=== PATIENT | male | born 1975 | race Two or more races ===

== ENCOUNTER 2024-09-06 10:44 | Inpatient (IN) | payer OTHER ==
[~2024-09-06] VITALS: Ht 177.8 cm; Wt 109.4 kg
--- NOTE | 2024-09-06 11:14 | ED.PDOC ---
GI ASSESSMENT HPI Comments 49-year-old male who comes in with chief complaint of right-sided abdominal pain that radiated down to his right lower quadrant. The patient states that the pain started in the epigastric area yesterday and then went down to the right lower quadrant. He did have a fever yesterday and he states that the pain is a 10/10. He is having some difficulty ambulating secondary to the pain. There has been no nausea, vomiting or diarrhea. The patient denies any history of this in the past. Chief Complaint: Abdominal Pain Time Seen by MD: 10:54 Reviewed Notes: Nurses Notes, Medications, Allergies (No allergies to medications) Allergies: Coded Allergies: NO KNOWN ALLERGIES (Unverified , 09/06/24) Information Source: Patient Mode of Arrival: Ambulatory Timing: Days Duration: Since onset Prehospital treatment: None Quality: Sharp Vomitus: None Stool: Tender Severity: Moderate Recent: None Recent Hx of: None Pain Location: RLQ Modifying Factors: Nothing Associated sign and symptoms: Abdominal Pain Past Medical History PAST MEDICAL HISTORY: Denies Surgical History: Denies all surgeries Family History Family History: Family hx of DM Social History Smoker: Cigarettes Alcohol: Occasionally Drugs: Denies Drug Use Lives In: Home Constitutional: denies: chills, diaphoresis, fatigue, fever, malaise, sweats, weakness, others EENTM: denies: blurred vision, double vision, ear bleeding, ear discharge, ear drainage, ear pain, ear ringing, eye pain, eye redness, hearing loss, mouth pain, mouth swelling, nasal discharge, nose bleeding, nose congestion, nose pain, photophobia, tearing, throat pain, throat swelling, voice changes, others Respiratory: denies: cough, hemoptysis, orthopnea, SOB at rest, shortness of breath, SOB with excertion, stridor, wheezing, others Cardiovascular: denies: chest pain, dizzy spells, diaphoresis, Dyspnea on exertion, edema, irregular heart beat, left arm pain, lightheadedness, palpitations, PND, syncope, others Gastrointestinal: reports: abdominal pain; denies: abdomen distended, blood streaked bowels, constipated, diarrhea, dysphagia, difficulty swallowing, hematemesis, melena, nausea, poor appetite, poor fluid intake, rectal bleeding, rectal pain, vomiting, others Genitourinary: denies: burning, dysuria, flank pain, frequency, hematuria, i ncontinence, penile discharge, penile sore, pain, testicle pain, testicle swelling, urgency, others Neurological: denies: dizziness, fainting, headache, left sided numbness, left sided weakness, numbness, paresthesia, pre-existing deficit, right sided numbness, right sided weakness, seizure, speech problems, tingling, tremors, weakness, others Musculoskeletal: denies: back pain, gout, joint pain, joint swelling, muscle pain, muscle stiffness, neck pain, others Integumetry: denies: bruises, change in color, change in hair/nails, dryness, laceration, lesions, lumps, rash, wounds, others Allergic/Immunocompromised: denies: Difficulty Healing, Frequent Infections, Hives, Itching, others Hematologic/Lymphatic: denies: anemia, blood clots, easy bleeding, easy bruising, swollen glands, others Endocrine: denies: excessive hunger, excessive sweating, excessive thirst, excessive urination, flushing, intolerance to cold, intolerance to heat, unexplained weight gain, unexplained weight loss, others Psychiatric: denies: anxiety, bipolar disorder, depression, hopeless, panic disorder, schizophrenia, sleepless, suicidal, others Physical Exam General Appearance: Moderate Distress HEENT: Normal ENT Inspection, Pharynx Normal, TMs Normal Neck: Full Range of Motion, Non-Tender, Normal, Normal Inspection Respiratory: Chest Non-Tender, Lungs Clear, No Accessory Muscle Use, No Respiratory Distress, Normal Breath Sounds Cardiovascular: No Edema, No JVD, No Murmur, No Gallop, Normal Peripheral Pulses, Regular Rate/Rhythm Breast Exam: Deferred Gastrointestinal: No Organomegaly, No Pulsatile Mass, Normal Bowel Sounds, RLQ, Soft, Tenderness Genitalia: Deferred Pelvic: Deferred Rectal: Deferred Extremities: No calf tenderness, Normal capillary refill, Normal inspection, Normal range of motion, Non-tender, No pedal edema Musculoskeletal : Apperance: Normal Neurologic: Alert, master of ceremonies II-XII nml as Tested, No Motor Deficits, Normal Affect, Normal Mood, No Sensory Deficits Cerebellar Function: Normal Reflexes: Normal Skin: Dry, Normal Color, Warm Lymphatic: No Adenopathy Was a procedure done? Was a procedure done?: No GI differential Dx Differential Diagnosis: Appendicitis, Gastritis/PUD, Gastroenteritis, Inflammatory BD, Pancreatitis, UTI, Electrolyte Imbalance X-Ray, Labs, Meds, VS Vital Signs Date Time Temp Pulse Resp B/P (MAP) Pulse Ox O2 Delivery O2 Flow Rate FiO2 09/06/24 11:45 Room Air* 0 21 09/06/24 11:40 128 20 125/82 09/06/24 11:29 98.3 128 20 125/82 (96) 96 98.3 09/06/24 11:07 97.8 129 18 111/87 (95) 96 Lab Test 09/06/24 11:16 09/06/24 11:00 Range/Units White Blood Count 21.9 H 4.4-10.8 10^3/uL Red Blood Count 5.57 4.5-5.90 10^6/uL Hemoglobin 17.6 H 13.5-17.5 g/dL Hematocrit 52.4 41.0-53.0 % Mean Corpuscular Volume 94.0 80.0-100.0 fL Mean Corpuscular Hemoglobin 31.7 28.0-32.0 pg Mean Corpuscular Hemoglobin Concent 33.7 32.0-36.0 g/dL Red Cell Distribution Width 13.5 11.8-14.3 % Platelet Count 365 140-450 10^3/uL Mean Platelet Volume 7.6 6.9-10.8 fL Neutrophils (%) (Auto) 78.8 37.0-80.0 % Lymphocytes (%) (Auto) 12.4 10.0-50.0 % Monocytes (%) (Auto) 7.6 0.0-12.0 % Eosinophils (%) (Auto) 0.4 0.0-7.0 % Basophils (%) (Auto) 0.8 0.0-2.0 % Neutrophils # (Auto) 17.3 H 1.6-8.6 10 ^3/uL Lymphocytes # (Auto) 2.7 0.4-5.4 10 ^3/uL Monocytes # (Auto) 1.7 H 0-1.3 10 ^3/uL Eosinophils # (Auto) 0.1 0-0.8 10 ^3/uL Basophils # (Auto) 0.2 0-0.2 10 ^3/uL Nucleated Red Blood Cells 0.0 % Prothrombin Time Pending Prothrombin Time INR Pending Activated Partial Thromboplast Time Pending Sodium Level 135 L 136-145 mmol/L Potassium Level 3.9 3.5-5.1 mmol/L Chloride Level 101 98-107 mmol/L Carbon Dioxide Level 27 20-31 mmol/L Anion Gap 7 5-15 Blood Urea Nitrogen 10 9-23 mg/dL Creatinine 1.29 0.700-1.30 mg/dL Glomerular Filtration Rate Calc 68 >90 mL/min BUN/Creatinine Ratio 7.8 L 10.0-20.0 Serum Glucose 133 H 74-106 mg/dL Calcium Level 10.5 H 8.7-10.4 mg/dL Urine Color Yellow Yellow Urine Clarity Clear Clear Urine pH 6.0 5.0-9.0 Urine Specific [place] 1.030 1.001-1.035 Urine Protein 1+ H Negative Urine Ketones Negative Negative Urine Blood Negative Negative /uL Urine Nitrite Negative Negative Urine Bilirubin Negative Negative Urine Urobilinogen Normal Negative mg/dL Urine Leukocyte Esterase Negative Negative /uL Urine RBC 2 0 - 3 /hpf Urine WBC 3 0 - 3 /hpf Urine Squamous Epithelial Cells None seen <5 /hpf Urine Bacteria None seen None Seen /hpf Urine Hyaline Casts Few 0 - 2 /lpf Urine Mucus Moderate None Seen Urine Glucose Normal Normal mg/dL Current Medications Medications (Trade) Dose Ordered Sig/Justin Route Start Time Stop Time Status Last Admin Ondansetron HCl (Zofran) 4 mg ONCE ONCE IV 09/06/24 11:15 09/06/24 11:16 DC 09/06/24 11:40 Sodium Chloride 1,000 ml @ 1,000 mls/hr Q1H ONCE IVB 09/06/24 11:15 09/06/24 12:14 09/06/24 11:39 Morphine Sulfate 4 mg ONCE ONCE IV 09/06/24 11:15 09/06/24 11:16 DC 09/06/24 11:40 [place] [address] Ph: [phone] DIAGNOSTIC IMAGING Diagnostic Imaging Report : [id number] Signed PATIENT: JOE LEE ACCT: [id number] UNIT: [id number] : 1975 LOC: ER ROOM / BED: / AGE / SEX: 49 / M ADM STATUS: REG ER SERVICE 1105 ORDERING PHYSICIAN: JATIN NOBLES MD PROCEDURE(s): ABPL - CT AB PEL WO CON-NO ORAL OR IV REASON: rlq ORDER NUMBER(s): [id number], ACCESSION NUMBER(s): [id number] Indication: rlq Technique: CT axial images of the abdomen and pelvis are obtained without contrast. Coronal and sagittal reformats were obtained. Radiation Dose Information: CTDI volume is 18.94 mGy. Dose-length product is 1138.48 mGy*cm Comparison: None FINDINGS: There is limited interpretation of the abdomen and pelvis without administration of intravenous contrast. Lung bases demonstrate right lower lobe atelectasis. Adrenal glands, spleen and pancreas unremarkable in shape. 2.5 cm duodenal diverticulum. Hepatic steatosis. No CT evidence for cholelithiasis. Gallbladder sludge. Kidneys demonstrate no hydronephrosis. Stomach is partially distended. Small bowel loops are normal in caliber. Colonic diverticula. Moderate volume stool within the colon. The appendix is inflamed and measures 13 mm in diameter. There is extensive periappendiceal stranding and edema. There is obstructing appendicolith measuring 10 mm. Abdominal aortic atherosclerotic disease. Bladder partially distended. No free pelvic fluid. No inguinal lymphadenopathy. There is no aggressive osseous process. [place] Dr. Chacko radiology times IMPRESSION: 1. Acute appendicitis with concern for perforation. Obstructing appendicolith measuring 10 mm[address] Findings communicated to Dr[address] Nobles at 11:53 a.m. on 09/06/2024 2. Hepatic steatosis. 3. Other findings as described. ATED BY: EUGENIO GOINS MD DICTATED DATE/TIME: 09/06/24 1155 SIGNED BY: EUGENIO GOINS MD SIGNED DATE/TIME: 09/06/24 1155 CC: IV Hep-Lock was established The patient was given 1 L bolus of normal saline Based on the findings, the patient was being started on Zosyn IV piggyback The patient was given morphine for the pain and Zofran for the nausea We contacted the surgeon on-call and he is aware of the patient's condition. We did discuss the patient's findings with the patient. At this time, the patient will be admitted with a diagnosis of acute appendicitis which is most likely ruptured. Images Reviewed?: Images reviewed and evaluated by me Time of 1ST Reevaluation: 11:13 Reevaluation 1ST: Unchanged Patient Education/Counseling: Diagnosis, Treatment, Prognosis Family Education/Counseling: No Family Present Departure 1 Departure Time of Disposition: 12:05 Impression: Primary Impression: Intractable abdominal pain Additional Impression: Ruptured appendicitis Disposition: ADMITTED INPATIENT Admit to: Tele Condition: Fair Critical Care Note Critical Care Time?: No Stability Stability form required: Yes Unstable for transfer: Telemetry monitoring (Telemetry monitoring required), ED Physician Assesment (Clinical assesment) Heart Score Heart Score: Heart Score Response (Comments) Value History N/A 0 EKG N/A 0 Age N/A 0 Risk Factors N/A 0 Troponin N/A 0 Total 0 I personally scribed for JATIN NOBLES MD ([email or web address]) on 09/06/24 at 12:04. Electronically submitted by Olga MOTT). JATIN NOBLES MD Sep 06, 2024 11:14
[2024-09-06 11:22] LABS: Urine Bacteria None Seen /hpf (None Seen)
[2024-09-06] MEDS: SODIUM CHLORIDE 0.9% 1,000 ML IVB ONE (11:39)
[2024-09-06] MEDS: MORPHINE SULFATE 4 MG/ML SYR/VIAL IV ONE (11:40)
[2024-09-06] MEDS: ONDANSETRON HCL 4 MG/2 ML VIAL IV ONE (11:40)
[2024-09-06 11:43] LABS: Urine Blood Negative /uL (Negative); Urine Clarity Clear (Clear); Urine Color Yellow (Yellow); Urine Hyaline Cast FEW /lpf (0 - 2); Urine Mucus MODERATE (None Seen); Urine Protein, UAD 1+ (Negative); Urine Urobilinogen Normal (Negative); Urine WBC 3 /hpf (0 - 3)
[2024-09-06 11:43] LABS: Basophils # (auto) 0.2 10 ^3/uL (0-0.2); Basophils % (auto) 0.8 % (0.0-2.0); Eosinophils # (auto) 0.1 10 ^3/uL (0-0.8); Eosinophils % (auto) 0.4 % (0.0-7.0); Hematocrit 52.4 % (41.0-53.0); Hemoglobin 17.6 g/dL (13.5-17.5); Lymphocytes # (auto) 2.7 10 ^3/uL (0.4-5.4); Lymphocytes % (auto) 12.4 % (10.0-50.0); Mean Corpuscular Hemoglobin 31.7 pg (28.0-32.0); Mean Corpuscular Hgb Conc. 33.7 g/dL (32.0-36.0); Monocytes # (auto) 1.7 10 ^3/uL (0-1.3); Monocytes % (auto) 7.6 % (0.0-12.0); Neutrophils # (auto) 17.3 10 ^3/uL (1.6-8.6); Neutrophils % (auto) 78.8 % (37.0-80.0); Platelet Count (auto) 365 10^3/uL (140-450); Red Blood Cells 5.57 10^6/uL (4.5-5.90); Red Cell Distribution Width 13.5 % (11.8-14.3); White Blood Cell 21.9 10^3/uL (4.4-10.8)
[2024-09-06 11:44] LABS: Chloride 101 mmol/L (98-107); Potassium 3.9 mmol/L (3.5-5.1); Sodium 135 mmol/L (136-145)
[2024-09-06 11:45] LABS: Anion Gap 7 (5-15); Calcium 10.5 mg/dL (8.7-10.4); Carbon Dioxide 27 mmol/L (20-31)
[2024-09-06 11:50] LABS: BUN/Creatinine Ratio 7.8 (10.0-20.0); Blood Urea Nitrogen 10 mg/dL (9-23); Glucose 133 mg/dL (74-106)
--- NOTE | 2024-09-06 11:57 | DVH ---
Indication: rlq Technique: CT axial images of the abdomen and pelvis are obtained without contrast. Coronal and sagit ciara reformats were obtained. Radiation Dose Information: CTDI volume is 18.94 mGy. Dose-length product is 1138.48 mGy*cm Comparison: None FINDINGS: There is limited interpretation of the abdomen and pelvis without administration of intravenous contr ast. Lung bases demonstrate right lower lobe atelectasis. Adrenal glands, spleen and pancreas unremarkable in shape. 2.5 cm duodenal diverticulum. Hepatic steatosis. No CT evidence for cholelithiasis. Gallbladder sludge. Kidneys demonstrate no hydronephrosis. Stomach is partially distended. Small bowel loops are normal in caliber. Colonic diverticula. Moderate volume stool within the colon. The appendix is inflamed and measures 1 3 mm in diameter. There is extensive periappendiceal stranding and edema. There is obstructing appen dicolith measuring 10 mm. Abdominal aortic atherosclerotic disease. Bladder partially distended. No free pelvic fluid. No ingui nal lymphadenopathy. There is no aggressive osseous process. [place] Dr. Chacko radiology times IMPRESSION: 1. Acute appendicitis with concern for perforation. Obstructing appendicolith measuring 10 mm. Findi ngs communicated to Dr. Nobles at 11:53 a.m. on 09/06/2024 2. Hepatic steatosis. 3. Other findings as described.
[2024-09-06 12:21] LABS: INR 1.08 (0.9-1.15); Partial Thromboplastin Time 30.2 SEC (24.5-34.5); Prothrombin Time 11.4 sec (9.3-11.8)
[2024-09-06] MEDS: PIPERACILLIN-TAZOB 3.375GM 100 ML IV ONE (12:22)
[2024-09-06] MEDS: CELECOXIB 100 MG CAP ONE (13:09)
[2024-09-06] MEDS: GABAPENTIN 400 MG CAP ONE (13:09)
[2024-09-06] MEDS: ACETAMINOPHEN IV 100 ML IV ONE (13:10)
[2024-09-06] MEDS ORDERED: LIDOCAINE 2% (LOCAL ANESTH.) PF 5ml SDV ONE ×2 (13:12→13:14)
[2024-09-06] MEDS ORDERED: DexAMETHasone SOD PHOS 10MG/1ML VIAL INJ ONE (13:14)
[2024-09-06] MEDS ORDERED: ONDANSETRON HCL 4 MG/2 ML VIAL ONE (13:14)
[2024-09-06] MEDS ORDERED: SUGAMMADEX 200mg/2ml Vial (100MG/ML) IV ONE (13:14)
[2024-09-06] MEDS ORDERED: KETOROLAC TROMETH 30 MG/ML 1ML VIAL ONE (13:14)
[2024-09-06] MEDS: CELECOXIB 100 MG CAP PO ONE (13:15)
[2024-09-06] MEDS ORDERED: GLYCOPYRROLATE 0.2 MG/ML 1ML VIAL ONE (13:15)
[2024-09-06] MEDS: ACETAMINOPHEN IV 1000 MG/100ML (10MG/ML) IV ONE (13:15)
[2024-09-06] MEDS ORDERED: PROPOFOL 10 MG/ML 20 ML IV ONE (13:15)
[2024-09-06] MEDS ORDERED: ROCURONIUM 10MG/ML 10ML VIAL IV ONE (13:15)
[2024-09-06] MEDS ORDERED: LIDOCAINE HCL 2% TOP JELLY 5ML TOP ONE (13:15)
[2024-09-06] MEDS: GABAPENTIN 400 MG CAP PO ONE (13:15)
[2024-09-06] MEDS ORDERED: fentaNYL CITRATE 100 MCG/2 ML VL ONE (13:41)
[2024-09-06] MEDS: metroNIDAZOLE 500MG/100ML 100 ML IV ONE (13:47)
[2024-09-06] MEDS ORDERED: ONDANSETRON HCL 4 MG/2 ML VIAL IV PRN ×4 (14:00→16:30)
[2024-09-06] MEDS ORDERED: DOCUSATE SOD 100 MG CAP PO PRN ×2 (14:00→14:15)
[2024-09-06] MEDS ORDERED: HYDROcodone-ACET 5/325MG TAB PO PRN ×2 (14:00→14:15)
[2024-09-06] MEDS ORDERED: MORPHINE SULFATE INJ 2 MG/ml SYRG IV PRN ×2 (14:00→14:15)
[2024-09-06] MEDS ORDERED: ACETAMINOPHEN 325 MG TAB PO PRN (14:00)
[2024-09-06] MEDS ORDERED: LORazepam 0.5 MG TAB PO PRN ×2 (14:00→14:15)
[2024-09-06] MEDS ORDERED: SODIUM CHLORIDE 0.9% 1,000 ML IV SCH ×2 (14:00→14:15)
[2024-09-06] MEDS ORDERED: PIPERACILLIN-TAZOB 3.375GM 100 ML IV SCH ×2 (14:00→20:00)
[2024-09-06] MEDS ORDERED: TEMAZEPAM 15 MG CAP PO PRN ×2 (14:00→14:15)
--- NOTE | 2024-09-06 14:16 | DVHHP2 ---
History of Present Illness Reason for Visit: abdominal pain History of Present Illness 49 yo obese patient with severe abdominal pain and no stated past medical history was evaluated in the ed shown to have acute appendix rupture and suspected perforation and infection patient was urgently recommended to admission and surgical intervention Review of Systems Constitutional: Yes: Fever, Weakness; No: Chills, Sweats, Malaise, Other Eyes: No: Pain, Vision change, Conjunctivae inflammation, Eyelid inflammation, Other, Redness ENT: No: Ear pain, Ear discharge, Nose pain, Nose discharge, Nose congestion, Mouth pain, Mouth swelling, Throat pain, Throat swelling, Other Respiratory: No: Cough, Dry, Shortness of breath, SOB with excertion, Wheezing, Hemoptysis, Pleuritic Pain, Sputum, Wheezing, Other Cardiovascular: No: Chest Pain, Palpitations, Orthopnea, Paroxysmal Noc. Dyspnea, Edema, Lt Headedness, Other Gastrointestinal: Nausea, Vomiting, Abdominal Pain; No: Diarrhea, Constipation, Melena, Hematochezia, Other Genitourinary: No Dysuria, No Frequency, No Incontinence, No Hematuria, No Retention, No Other Musculoskeletal: No: other, neck pain, shoulder pain, arm pain, back pain, hand pain, leg pain, foot pain Skin: No: Rash, Lesions, Jaundice, Bruising, Other Neurological: No: Weakness, Numbness, Incoordination, Change in speech, Confusion, Seizures, Other Allergies: Coded Allergies: NO KNOWN ALLERGIES (Unverified , 09/06/24) Medications Current Medications Medications Dose Ordered Sig/Justin Route Start Time Stop Time Status Last Admin Dose Admin Sodium Chloride 1,000 ml @ 100 mls/hr Q10H IV 09/06/24 14:00 UNV Lorazepam 0.5 mg Q6HP PRN PO 09/06/24 14:00 UNV Docusate Sodium 100 mg BIDPRN PRN PO 09/06/24 14:00 UNV Acetaminophen 650 mg Q6HP PRN PO 09/06/24 14:00 UNV Temazepam 15 mg QHSP PRN PO 09/06/24 14:00 UNV Acetaminophen/ Hydrocodone Bitart 1 tab Q4HP PRN PO 09/06/24 14:00 UNV Ondansetron HCl 4 mg Q4HP PRN IV 09/06/24 14:00 UNV Morphine Sulfate 2 mg Q4HPRN PRN IV 09/06/24 14:00 UNV Piperacillin Sod/ Tazobactam Sod 100 ml @ 100 mls/hr Q8HR IV 09/06/24 14:00 UNV Exam Vital Signs Vital Signs Date Time Temp Pulse Resp B/P (MAP) Pulse Ox O2 Delivery O2 Flow Rate FiO2 09/06/24 12:10 117 17 128/84 09/06/24 11:45 Room Air* 0 21 09/06/24 11:29 98.3 96 98.3 General Appearance: Alert, severe distress HEENT: Atraumatic, PERRLA Respiratory: Clear to auscultation, Normal air movement Cardiovascular: Regular rate, Normal S1 Abdominal: Normal bowel sounds, Soft Extremities: No clubbing, No cyanosis Skin: No rashes, No breakdown Neuro: Normal gait, Normal speech Psych/Mental Status: Mood NL Labs/Xrays Labs Test 09/06/24 11:16 09/06/24 11:00 Range/Units White Blood Count 21.9 H 4.4-10.8 10^3/uL Red Blood Count 5.57 4.5-5.90 10^6/uL Hemoglobin 17.6 H 13.5-17.5 g/dL Hematocrit 52.4 41.0-53.0 % Mean Corpuscular Volume 94.0 80.0-100.0 fL Mean Corpuscular Hemoglobin 31.7 28.0-32.0 pg Mean Corpuscular Hemoglobin Concent 33.7 32.0-36.0 g/dL Red Cell Distribution Width 13.5 11.8-14.3 % Platelet Count 365 140-450 10^3/uL Mean Platelet Volume 7.6 6.9-10.8 fL Neutrophils (%) (Auto) 78.8 37.0-80.0 % Lymphocytes (%) (Auto) 12.4 10.0-50.0 % Monocytes (%) (Auto) 7.6 0.0-12.0 % Eosinophils (%) (Auto) 0.4 0.0-7.0 % Basophils (%) (Auto) 0.8 0.0-2.0 % Neutrophils # (Auto) 17.3 H 1.6-8.6 10 ^3/uL Lymphocytes # (Auto) 2.7 0.4-5.4 10 ^3/uL Monocytes # (Auto) 1.7 H 0-1.3 10 ^3/uL Eosinophils # (Auto) 0.1 0-0.8 10 ^3/uL Basophils # (Auto) 0.2 0-0.2 10 ^3/uL Nucleated Red Blood Cells 0.0 % Prothrombin Time 11.4 9.3-11.8 sec Prothrombin Time INR 1.08 0.9-1.15 Activated Partial Thromboplast Time 30.2 24.5-34.5 SEC Sodium Level 135 L 136-145 mmol/L Potassium Level 3.9 3.5-5.1 mmol/L Chloride Level 101 98-107 mmol/L Carbon Dioxide Level 27 20-31 mmol/L Anion Gap 7 5-15 Blood Urea Nitrogen 10 9-23 mg/dL Creatinine 1.29 0.700-1.30 mg/dL Glomerular Filtration Rate Calc 68 >90 mL/min BUN/Creatinine Ratio 7.8 L 10.0-20.0 Serum Glucose 133 H 74-106 mg/dL Calcium Level 10.5 H 8.7-10.4 mg/dL Urine Color Yellow Yellow Urine Clarity Clear Clear Urine pH 6.0 5.0-9.0 Urine Specific [place] 1.030 1.001-1.035 Urine Protein 1+ H Negative Urine Ketones Negative Negative Urine Blood Negative Negative /uL Urine Nitrite Negative Negative Urine Bilirubin Negative Negative Urine Urobilinogen Normal Negative mg/dL Urine Leukocyte Esterase Negative Negative /uL Urine RBC 2 0 - 3 /hpf Urine WBC 3 0 - 3 /hpf Urine Squamous Epithelial Cells None seen <5 /hpf Urine Bacteria None seen None Seen /hpf Urine Hyaline Casts Few 0 - 2 /lpf Urine Mucus Moderate None Seen Urine Glucose Normal Normal mg/dL Assessment/Plan Assessment/Plan Admit Med/Surg Appendix Perforation IV hydratio IV Abx prn pain management diet as per surgery cleared surgery occurring now place on med surg vs upgraded based on postop conditin Plan discussed with: Patient My Orders Orders - FLORIN STROUD MD Procedure Category Date Status Time Admit ADMIT 09/06/24 Transmitted 13:50 Code Status CODE 09/06/24 Transmitted 13:50 Vital Signs CHARLES 09/06/24 In Process 13:50 Review Orders With CHARLES 09/06/24 In Process Adm. 13:50 Npo (Nothing By DIET 09/06/24 Transmitted Mouth) Diet Dinner Sodium Chloride 0.9% PHA 09/06/24 Logged 14:00 Lorazepam Tablet PHA 09/06/24 Logged (Ativan Tablet) 14:00 Docusate Sodium PHA 09/06/24 Logged Capsule (Colace 14:00 Acetaminophen Tablet PHA 09/06/24 Logged (Tylenol Tablet) 14:00 Temazepam (Restoril) PHA 09/06/24 Logged 14:00 Notify Md Of Changes CHARLES 09/06/24 In Process From Base 13:50 Advance Directive CHARLES 09/06/24 In Process 13:50 Basic Metabolic Panel LAB 09/07/24 Verified 04:00 Complete Blood Count LAB 09/07/24 Verified 04:00 Patient Condition ORDERS 09/06/24 Transmitted 13:50 Allergies CHARLES 09/06/24 In Process 13:50 Hydrocodone-Acet PHA 09/06/24 Logged 5/325mg Tab ([place] 14:00 Ondansetron Hcl PHA 09/06/24 Logged (Zofran) 14:00 Morphine Sulfate PHA 09/06/24 Logged Injection 14:00 Notify Md Of Changes [facility] 09/06/24 In Process From Base 13:50 Oxygen By Nasal RT 09/06/24 Transmitted Cannula 13:50 Piperacillin-Tazob PHA 09/06/24 Logged 3.375gm (Zosyn 3.375g 14:00 Problem List: (1) Ruptured appendicitis (2) Intractable abdominal pain Date of Service: Sep 06, 2024 Billing Provider: FLORIN STROUD MD Common Visit Codes: [id number] INP/OBS CARE (HIGH) FLORIN STROUD MD Sep 06, 2024 14:16
[2024-09-06 14:43] VITALS: PULSE 101; RESP 25; O2SAT 96
--- NOTE | 2024-09-06 14:59 | DVHOP ---
DATE OF SURGERY: 09/06/2024 PREOPERATIVE DIAGNOSIS: Ruptured appendicitis. POSTOPERATIVE DIAGNOSIS: Ruptured appendicitis. SURGEON: Clinton Chamberlain MD ANESTHESIA: General endotracheal. ANESTHESIOLOGIST: ____ PROCEDURE: Laparoscopy, laparoscopic appendectomy, drainage of pelvic abscess. DESCRIPTION OF PROCEDURE: Under adequate anesthesia, with the patient's skin prepped and draped supraumbilical incision was made and Veress needle inserted by the hanging drop technique to establish pneumoperitoneum to 15 mmHg pressure by insufflation with carbon dioxide. With the abdomen fully distended, the needle was removed and replaced with a 5 mm trocar port through which a 0-degree viewing laparoscope was inserted and under direct vision, additional 5 and 10 mm ports inserted through the midline abdominal wall. Laparoscopy was hampered by the patient's morbid obesity; however, no obvious unexpected pathology was encountered. There was evident of ileus, small bowel loops were dilated. There was a phlegmon in the right lower quadrant consisting of the omentum, small bowel loops, cecum and the appendix. This was dissected meticulously by blunt dissection and the appendix became evident. It was massively enlarged and it was disrupted at its base. The appendix was grasped with a Gilman forceps and Endo-TRUDI stapler applied at its base at the confluence with the cecum. An appendicolith was found free floating in the right lower quadrant peritoneal cavity and it was retrieved with a stone forceps. The right lower quadrant was then profusely irrigated, irrigant was aspirated. All obvious infection was evacuated and cultures was submitted. A 10 mm Eduardo-Diallo drain was placed to the vicinity, but not abutting against the appendiceal base at the cecal confluence and exteriorized through the 5 mm trocar port site and secured with a 2-0 nylon suture. Hemostasis was meticulously accomplished, found to be complete. At the termination of procedure, there was no evidence of bleeding from either the appendicectomy site or from the port sites. Instrumentation was withdrawn. Pneumoperitoneum was evacuated. Fascial defect closed using 0 Vicryl. Metallic skin altagracia used for approximation of skin edges. The patient remained hemodynamically stable throughout the procedure, left the operating room following an accurate needle and sponge count. Clinton Chamberlain MD PF TID: [id number] RECEIPT: [id number]
[2024-09-06] MEDS ORDERED: ePHEDrine SULFATE 50 MG/ML AMP IV PRN (15:00)
[2024-09-06] MEDS ORDERED: HYDROmorphone HCL 2 MG/ML VL/or syr IV PRN (15:00)
[2024-09-06] MEDS ORDERED: FLUMAZENIL 0.1 MG/ML INJ 10ML MDV IV PRN (15:00)
[2024-09-06] MEDS ORDERED: oxyCODONE HCL 5MG TAB PO PRN (15:00)
[2024-09-06] MEDS ORDERED: fentaNYL CITRATE 100 MCG/2 ML VL IV PRN (15:00)
[2024-09-06] MEDS ORDERED: NALOXONE HCL 0.4 MG/ML VIAL IV PRN (15:00)
[2024-09-06] MEDS ORDERED: hydrALAZINE HCL 20 MG/ML VL IV PRN (15:00)
[2024-09-06] MEDS: D5W/SOD CHL 0.45%/KCL 20MEQ 1,000 ML IV SCH (16:30)
[2024-09-06 18:12] VITALS: BP 135/83; PULSE 100; RESP 18; TEMP 98.7; O2SAT 93
[2024-09-06] MEDS ORDERED: MULT-1180 PO (18:18)
[2024-09-06 20:00] VITALS: PULSE 111; RESP 20; O2SAT 95
[2024-09-06] MEDS: HYDROmorphone HCL 2 MG/ML VL/or syr IV PRN (20:23)
[2024-09-06 21:00] VITALS: BP 125/79; PULSE 111; RESP 20; TEMP 99.8; O2SAT 92
[2024-09-06] MEDS: ceFAZolin 2 GM/D5W50ml 50 ML IV SCH (21:05)
[2024-09-06] MEDS: metroNIDAZOLE 500MG/100ML 100 ML IV SCH (22:40)
[2024-09-07] VITALS (8 sets, daily range): BP systolic 101–140; BP diastolic 63–84; PULSE 91–111; RESP 17–20; TEMP 97.9–100.8; O2SAT 89–95
[2024-09-07] MEDS: ACETAMINOPHEN 325 MG TAB PO PRN (01:32)
--- NOTE | 2024-09-07 06:02 | DVHINCON2 ---
DATE OF CONSULTATION: 09/06/2024 SURGICAL CONSULTATION HISTORY OF PRESENT ILLNESS: The patient is a 49-year-old male being evaluated for possibility of appendicitis. He had started with subxiphoid epigastric pain which migrated to the right lower quadrant. It was accompanied by nausea and anorexia. The patient's pain started at approximately 36 hours ago. He has had no previous episodes of such discomfort. He has no history of any abdominal surgeries or chest surgeries. SOCIAL HISTORY: He is a smoker, drinker. He uses no illicit drugs The last alcoholic drink was 72 hours ago. ALLERGIES: He has no known medicinal allergies. REVIEW OF SYSTEMS: Obesity, otherwise no contributory information. PHYSICAL EXAMINATION: GENERAL: Well-developed, well-nourished, obese male, BMI 33.2 kilograms per meters squared. HEENT: Pupils are equal, round, react to light equally. Sclerae nonicteric. Extraocular motion is intact. Uvula midline. Trachea midline. Carotids are full without bruits. Jugular veins are collapsed. HEART: Regular rate and rhythm without murmur or gallop. ABDOMEN: Tensely distended with guarding in the right lower quadrant. There is rebound tenderness. There is referred tenderness, positive Rovsing and obturator signs. BACK: No CVA tenderness. EXTREMITIES: No peripheral vascular insufficiency. No venous stasis. LABORATORY DATA: The patient's electrolytes show slight hyponatremia, otherwise the exception of elevated glucose. Chemistry is grossly normal. The patient's INR is 1.08. PT is 11.4. His white count is 21.9 with normal platelet count, normal H and H,. The imaging was done by means of an abdominopelvic CT scan done without contrast which shows enlarged inflamed appendix with periappendiceal stranding and an appendicolith in place at the base of the appendix. DIAGNOSES: Acute suppurative appendicitis. ASSESSMENT AND PLAN: The patient will undergo laparoscopic, possibly open appendectomy. Procedure, risks and potential complications were explained in detail. MD VINNIE Lau TID: [id number] RECEIPT: [id number]
[2024-09-07 07:41] LABS: Basophils # (auto) 0.1 10 ^3/uL (0-0.2); Basophils % (auto) 0.6 % (0.0-2.0); Eosinophils # (auto) 0 10 ^3/uL (0-0.8); Hemoglobin 15.2 g/dL (13.5-17.5); Lymphocytes # (auto) 1.6 10 ^3/uL (0.4-5.4); Lymphocytes % (auto) 8.7 % (10.0-50.0); Mean Corpuscular Hemoglobin 32.1 pg (28.0-32.0); Mean Corpuscular Hgb Conc. 34.5 g/dL (32.0-36.0); Mean Corpuscular Volume 92.9 fL (80.0-100.0); Monocytes # (auto) 1.3 10 ^3/uL (0-1.3); Monocytes % (auto) 6.8 % (0.0-12.0); Neutrophils # (auto) 15.8 10 ^3/uL (1.6-8.6); Neutrophils % (auto) 83.9 % (37.0-80.0); Platelet Count (auto) 289 10^3/uL (140-450); Red Blood Cells 4.74 10^6/uL (4.5-5.90); White Blood Cell 18.8 10^3/uL (4.4-10.8)
[2024-09-07 07:48] LABS: Chloride 105 mmol/L (98-107); Potassium 3.8 mmol/L (3.5-5.1); Sodium 137 mmol/L (136-145)
[2024-09-07 07:49] LABS: Anion Gap 9 (5-15); Calcium 9.4 mg/dL (8.7-10.4); Carbon Dioxide 23 mmol/L (20-31)
[2024-09-07 07:54] LABS: BUN/Creatinine Ratio 13.6 (10.0-20.0); Blood Urea Nitrogen 15 mg/dL (9-23); Glucose 133 mg/dL (74-106)
--- NOTE | 2024-09-07 10:49 | DVHPN2 ---
Progress Note Date Seen: Sep 07, 2024 Medical Necessity Reason Pt with a Central, PICC or Fol: No Subjective Patient reports: No new complaints, Feels better Objective vital signs Vital Sign Date Time Temp Pulse Resp B/P (MAP) Pulse Ox O2 Delivery O2 Flow Rate FiO2 09/07/24 06:52 88 18 101/63 09/07/24 05:00 99.1 92 99.1 09/06/24 20:00 Nasal Cannula* 2 28 Total Intake and Output 09/06/24 09/06/24 09/07/24 15:00 23:00 07:00 Intake Total 1000 ml 50 ml 950 ml Output Total 1200 ml Balance 1000 ml 50 ml -250 ml medications Current Medications Medications Dose Ordered Sig/Justin Route Start Time Stop Time Status Last Admin Dose Admin Oxycodone HCl 10 mg ONCE PRN PO 09/06/24 15:00 Lorazepam 0.5 mg Q6HP PRN PO 09/06/24 14:15 Docusate Sodium 100 mg BIDPRN PRN PO 09/06/24 14:15 Acetaminophen 650 mg Q6HP PRN PO 09/06/24 14:15 09/07/24 01:32 650 MG Temazepam 15 mg QHSP PRN PO 09/06/24 14:15 Acetaminophen/ Hydrocodone Bitart 1 tab Q4HP PRN PO 09/06/24 14:15 Potassium Chloride/Dextrose/ Sod Cl 1,000 ml @ 120 mls/hr Q8H20M IV 09/06/24 16:30 Cefazolin Sodium/ Dextrose 50 ml @ 50 mls/hr Q8H IV 09/06/24 21:00 09/07/24 04:44 50 MLS/HR Metronidazole 100 ml @ 100 mls/hr Q8HR IV 09/06/24 22:00 09/07/24 06:19 100 MLS/HR Hydromorphone HCl 1 mg Q3HP PRN IV 09/06/24 16:30 09/07/24 06:22 1 MG Ondansetron HCl 4 mg Q6HPRN PRN IV 09/06/24 16:30 Examination: GENERAL:Normal, HEENT:Normal, NECK:Normal, LUNGS:Normal, CVS:Normal, ABDOMEN:Abnormal (REGIS drains ), MSK:Normal laboratory and microbiology Laboratory Tests 09/07/24 06:32 Test 09/07/24 06:32 Range/Units Serum Glucose 133 H 74-106 mg/dL Problem List/Assessment/Plan Problem List/Assessment/Plan 09/07/24 abdomen soft, non distended, appropriately tender, wound clean dry and intact, patient stated not passing gas, denies nausea or vomiting patient to ambulate NPO except ice chips Plan discussed with: Patient, Other 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
--- NOTE | 2024-09-07 11:47 | DVHPN2 ---
Subjective Patient seen and examined at bedside. No complaint today. Reviewed: Care Plan, H&P, Labs, Medications, Previous Orders, Radiology Changes from previous H/P or p: No Changes General: Per HPI Eyes: No Pain, No Vision change, No Conjunctivae inflammation, No Eyelid inflammation, No Other, No Redness ENT: No Ear pain, No Ear discharge, No Nose pain, No Nose discharge, No Nose congestion, No Mouth pain, No Mouth swelling, No Throat pain, No Throat swelling, No Other Cardiovascular: No Chest Pain, No Palpitations, No Orthopnea, No Paroxysmal Noc. Dyspnea, No Edema, No Lt Headedness, No Other Respiratory: No Cough, No Dry, No Shortness of breath, No SOB with excertion, No Wheezing, No Hemoptysis, No Pleuritic Pain, No Sputum, No Other Gastrointestinal: Nausea, Vomiting, Abdominal Pain; No Diarrhea, No Constipation, No Melena, No Hematochezia, No Other Genitourinary: No Dysuria, No Frequency, No Incontinence, No Hematuria, No Retention, No Other Musculoskeletal: No other, No neck pain, No shoulder pain, No arm pain, No back pain, No hand pain, No leg pain, No foot pain Skin: No Rash, No Lesions, No Jaundice, No Bruising, No Other Objective Vitals Vital Signs Date Time Temp Pulse Resp B/P (MAP) Pulse Ox O2 Delivery O2 Flow Rate FiO2 09/07/24 11:01 62 18 105/62 09/07/24 10:59 97.9 95 97.9 09/06/24 20:00 Nasal Cannula* 2 28 Intake/Output Intake and Output 09/07/24 07:00 Intake Total 2000 ml Output Total 1200 ml Balance 800 ml Intake Oral 800 ml IV Total 1200 ml Output Urine Total 1200 ml General Appearance: Alert, Cooperative, No acute distress HEENT: Atraumatic, PERRLA, EOMI, Mucous membr. moist/pink Neck: Rigidity Lungs: Clear to auscultation, Normal air movement Cardiovascular: Regular rate, Normal S1, Normal S2, No murmurs, Gallops, Rubs Abdomen: Normal bowel sounds, Soft, No tenderness Neuro: Cranial nerves 3-12 NL Psych/Mental Status: Mental status NL Medications Current Medications Medications Dose Ordered Sig/Justin Route Start Time Stop Time Status Last Admin Dose Admin Oxycodone HCl 10 mg ONCE PRN PO 09/06/24 15:00 Lorazepam 0.5 mg Q6HP PRN PO 09/06/24 14:15 Docusate Sodium 100 mg BIDPRN PRN PO 09/06/24 14:15 Acetaminophen 650 mg Q6HP PRN PO 09/06/24 14:15 09/07/24 01:32 650 MG Temazepam 15 mg QHSP PRN PO 09/06/24 14:15 Acetaminophen/ Hydrocodone Bitart 1 tab Q4HP PRN PO 09/06/24 14:15 Potassium Chloride/Dextrose/ Sod Cl 1,000 ml @ 120 mls/hr Q8H20M IV 09/06/24 16:30 Cefazolin Sodium/ Dextrose 50 ml @ 50 mls/hr Q8H IV 09/06/24 21:00 09/07/24 04:44 50 MLS/HR Metronidazole 100 ml @ 100 mls/hr Q8HR IV 09/06/24 22:00 09/07/24 06:19 100 MLS/HR Hydromorphone HCl 1 mg Q3HP PRN IV 09/06/24 16:30 09/07/24 11:01 1 MG Ondansetron HCl 4 mg Q6HPRN PRN IV 09/06/24 16:30 Laboratory Results Laboratory Tests 09/07/24 06:32 Chemistry Test 09/07/24 06:32 Calcium Level 9.4 mg/dL (8.7-10.4) Urinalysis Test 09/06/24 11:00 Urine Color Yellow (Yellow) Urine Clarity Clear (Clear) Urine pH 6.0 (5.0-9.0) Urine Specific [place] 1.030 (1.001-1.035) Urine Protein 1+ (Negative) H Urine Ketones Negative (Negative) Urine Blood Negative /uL (Negative) Urine Nitrite Negative (Negative) Urine Bilirubin Negative (Negative) Urine Urobilinogen Normal mg/dL (Negative) Urine Leukocyte Esterase Negative /uL (Negative) Urine RBC 2 /hpf (0 - 3) Urine WBC 3 /hpf (0 - 3) Urine Squamous Epithelial Cells None seen /hpf (<5) Urine Bacteria None seen /hpf (None Seen) Urine Hyaline Casts Few /lpf (0 - 2) Urine Mucus Moderate (None Seen) Urine Glucose Normal mg/dL (Normal) Microbiology Microbiology Date/Time Source Procedure Growth Status 09/06/24 14:30 Peritoneal Fluid Gram Stain - Final Resulted 09/06/24 14:30 Peritoneal Fluid Anaerobic Culture Pending Resulted 09/06/24 14:30 Peritoneal Fluid Aerobic Culture - Preliminary Resulted Labs and/or images reviewed: Labs reviewed by me Assessment/Plan Assessment/Plan Rupture of the appendix status post appendectomy Plan: Continuing current management. Continuing to keep NPO. Diet will be started by surgeon. Continuing IV fluid. Continuing IV pain medication. Continuing IV Zofran p.r.n. for nausea or vomiting. Continuing IV antibiotics. Plan discussed with: Patient Date of Service: Sep 07, 2024 Billing Provider: LISA LINO MD Common Visit Codes: [id number] INP/OBS CARE(HIGH) LISA LINO MD Sep 07, 2024 11:47
[2024-09-07] MEDS ORDERED: DexAMETHasone SOD PHOS 10MG/1ML VIAL INJ IV ONE (13:25)
[2024-09-07] MEDS ORDERED: KETOROLAC TROMETH 30 MG/ML 1ML VIAL IV ONE (13:26)
[2024-09-08 05:00] VITALS: BP 168/94; PULSE 105; RESP 20; TEMP 98.2; O2SAT 92
[2024-09-08 08:00] VITALS: PULSE 110; RESP 20; O2SAT 95
[2024-09-08 09:00] VITALS: BP 153/98; PULSE 113; RESP 19; TEMP 98.2; O2SAT 92
--- NOTE | 2024-09-08 09:25 | DVHPN2 ---
Progress Note Date Seen: Sep 08, 2024 Medical Necessity Reason Pt with a Central, PICC or Fol: No Subjective Review of Systems: HEENT:Normal, CVS:Normal, RESPIRATORY:Normal, GI:Abnormal (nausea), MSK:Normal, NEURO:Normal Objective vital signs Vital Sign Date Time Temp Pulse Resp B/P (MAP) Pulse Ox O2 Delivery O2 Flow Rate FiO2 09/08/24 05:00 98.2 105 20 168/94 (118) 92 98.2 09/07/24 20:00 Nasal Cannula* 2 28 Total Intake and Output 09/07/24 09/07/24 09/08/24 15:00 23:00 07:00 Intake Total 100 ml 0 ml 0 ml Output Total 700 ml 625 ml Balance 100 ml -700 ml -625 ml medications Current Medications Medications Dose Ordered Sig/Justin Route Start Time Stop Time Status Last Admin Dose Admin Oxycodone HCl 10 mg ONCE PRN PO 09/06/24 15:00 Lorazepam 0.5 mg Q6HP PRN PO 09/06/24 14:15 Docusate Sodium 100 mg BIDPRN PRN PO 09/06/24 14:15 Acetaminophen 650 mg Q6HP PRN PO 09/06/24 14:15 09/07/24 15:13 650 MG Temazepam 15 mg QHSP PRN PO 09/06/24 14:15 Acetaminophen/ Hydrocodone Bitart 1 tab Q4HP PRN PO 09/06/24 14:15 Potassium Chloride/Dextrose/ Sod Cl 1,000 ml @ 120 mls/hr Q8H20M IV 09/06/24 16:30 09/08/24 01:50 120 MLS/HR Cefazolin Sodium/ Dextrose 50 ml @ 50 mls/hr Q8H IV 09/06/24 21:00 09/08/24 05:31 50 MLS/HR Metronidazole 100 ml @ 100 mls/hr Q8HR IV 09/06/24 22:00 09/08/24 06:00 100 MLS/HR Hydromorphone HCl 1 mg Q3HP PRN IV 09/06/24 16:30 09/08/24 00:14 1 MG Ondansetron HCl 4 mg Q6HPRN PRN IV 09/06/24 16:30 Examination: GENERAL:Normal, HEENT:Normal, NECK:Normal, LUNGS:Normal, CVS:Normal, ABDOMEN:Abnormal (abdomen distended), MSK:Normal, SKIN:Normal laboratory and microbiology Laboratory Tests 09/07/24 06:32 Test 09/07/24 06:32 Range/Units Serum Glucose 133 H 74-106 mg/dL Problem List/Assessment/Plan Problem List/Assessment/Plan 09/07/24 abdomen soft, non distended, appropriately tender, wound clean dry and intact, patient stated not passing gas, denies nausea or vomiting patient to ambulate NPO except ice chips 09/08/24 - abdomen distended, hiccups, nausea, patient states he was vomiting earlier, wound clean dry and intact NPO NG to LCS Plan discussed with: Patient, Other (Dr. 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
--- NOTE | 2024-09-08 11:31 | DVHPN2 ---
Subjective The patient seems him at bedside. Had minimal abdominal pain. Patient passed flatus. Reviewed: Care Plan, H&P, Labs, Medications, Previous Orders, Radiology Changes from previous H/P or p: No Changes Eyes: No Pain, No Vision change, No Conjunctivae inflammation, No Eyelid inflammation, No Other, No Redness ENT: No Ear pain, No Ear discharge, No Nose pain, No Nose discharge, No Nose congestion, No Mouth pain, No Mouth swelling, No Throat pain, No Throat swelling, No Other Cardiovascular: No Chest Pain, No Palpitations, No Orthopnea, No Paroxysmal Noc. Dyspnea, No Edema, No Lt Headedness, No Other Respiratory: No Cough, No Dry, No Shortness of breath, No SOB with excertion, No Wheezing, No Hemoptysis, No Pleuritic Pain, No Sputum, No Other Gastrointestinal: Nausea, Vomiting, Abdominal Pain; No Diarrhea, No Constipation, No Melena, No Hematochezia, No Other Genitourinary: No Dysuria, No Frequency, No Incontinence, No Hematuria, No Retention, No Other Musculoskeletal: No other, No neck pain, No shoulder pain, No arm pain, No back pain, No hand pain, No leg pain, No foot pain Skin: No Rash, No Lesions, No Jaundice, No Bruising, No Other Objective Vitals Vital Signs Date Time Temp Pulse Resp B/P (MAP) Pulse Ox O2 Delivery O2 Flow Rate FiO2 09/08/24 10:13 100 20 146/76 09/08/24 09:00 98.2 92 98.2 09/07/24 20:00 Nasal Cannula* 2 28 Intake/Output Intake and Output 09/08/24 07:00 Intake Total 100 ml Output Total 1325 ml Balance -1225 ml Intake Oral 0 ml IV Total 100 ml Output Urine Total 1100 ml Drainage Total 225 ml General Appearance: Alert, Oriented X3, Cooperative, No acute distress HEENT: Atraumatic, PERRLA, EOMI, Mucous membr. moist/pink Neck: Supple Lungs: Clear to auscultation, Normal air movement Cardiovascular: Regular rate, Normal S1, Normal S2, No murmurs, Gallops, Rubs Abdomen: Normal bowel sounds, Soft, No tenderness Neuro: Cranial nerves 3-12 NL Psych/Mental Status: Mental status NL Medications Current Medications Medications Dose Ordered Sig/Justin Route Start Time Stop Time Status Last Admin Dose Admin Oxycodone HCl 10 mg ONCE PRN PO 09/06/24 15:00 Lorazepam 0.5 mg Q6HP PRN PO 09/06/24 14:15 Docusate Sodium 100 mg BIDPRN PRN PO 09/06/24 14:15 Acetaminophen 650 mg Q6HP PRN PO 09/06/24 14:15 09/07/24 15:13 650 MG Temazepam 15 mg QHSP PRN PO 09/06/24 14:15 Acetaminophen/ Hydrocodone Bitart 1 tab Q4HP PRN PO 09/06/24 14:15 Potassium Chloride/Dextrose/ Sod Cl 1,000 ml @ 120 mls/hr Q8H20M IV 09/06/24 16:30 09/08/24 01:50 120 MLS/HR Cefazolin Sodium/ Dextrose 50 ml @ 50 mls/hr Q8H IV 09/06/24 21:00 09/08/24 05:31 50 MLS/HR Metronidazole 100 ml @ 100 mls/hr Q8HR IV 09/06/24 22:00 09/08/24 06:00 100 MLS/HR Hydromorphone HCl 1 mg Q3HP PRN IV 09/06/24 16:30 09/08/24 09:43 1 MG Ondansetron HCl 4 mg Q6HPRN PRN IV 09/06/24 16:30 Laboratory Results Laboratory Tests 09/07/24 06:32 Urinalysis Test 09/06/24 11:00 Urine Color Yellow (Yellow) Urine Clarity Clear (Clear) Urine pH 6.0 (5.0-9.0) Urine Specific [place] 1.030 (1.001-1.035) Urine Protein 1+ (Negative) H Urine Ketones Negative (Negative) Urine Blood Negative /uL (Negative) Urine Nitrite Negative (Negative) Urine Bilirubin Negative (Negative) Urine Urobilinogen Normal mg/dL (Negative) Urine Leukocyte Esterase Negative /uL (Negative) Urine RBC 2 /hpf (0 - 3) Urine WBC 3 /hpf (0 - 3) Urine Squamous Epithelial Cells None seen /hpf (<5) Urine Bacteria None seen /hpf (None Seen) Urine Hyaline Casts Few /lpf (0 - 2) Urine Mucus Moderate (None Seen) Urine Glucose Normal mg/dL (Normal) Microbiology Microbiology Date/Time Source Procedure Growth Status 09/06/24 14:30 Peritoneal Fluid Gram Stain - Final Resulted 09/06/24 14:30 Peritoneal Fluid Anaerobic Culture - Preliminary Resulted 09/06/24 14:30 Peritoneal Fluid Aerobic Culture - Preliminary Resulted Labs and/or images reviewed: Labs reviewed by me Assessment/Plan Assessment/Plan Rupture of the appendix status post appendectomy Plan: Continuing current management. Continuing to keep NPO. Okay for ice chips Diet will be started by surgeon. Continuing IV fluid. Continuing IV pain medication. Continuing IV Zofran p.r.n. for nausea or vomiting. Continuing IV antibiotics. Plan discussed with: Patient Date of Service: Sep 08, 2024 Billing Provider: LISA LINO MD Common Visit Codes: [id number] INP/OBS CARE(HIGH) LISA LINO MD Sep 08, 2024 11:31
[2024-09-08 13:00] VITALS: BP 148/87; PULSE 103; RESP 20; TEMP 98.1; O2SAT 93
--- NOTE | 2024-09-08 13:03 | DVH ---
CHEST RADIOGRAPH Indication: NG tube placement Technique: Single frontal view of the chest was obtained Comparison: None FINDINGS: Lines and Tubes: Enteric tube is in satisfactory position. Lungs: No focal consolidation. Bronchovascular crowding due to low lung volumes with elevation of the right hemidiaphragm. Pleura: No effusion. No pneumothorax. Cardiomediastinal contours: Unremarkable Bones: No acute osseous abnormality. IMPRESSION: Enteric tube is in satisfactory position. Bronchovascular crowding due to low lung volumes elevation of the right hemidiaphragm. Otherwise, no evidence for acute cardiopulmonary disease.
[2024-09-08 17:00] VITALS: BP 151/91; PULSE 122; RESP 18; TEMP 98; O2SAT 92
[2024-09-08 21:00] VITALS: BP 128/79; PULSE 108; RESP 20; TEMP 98.6; O2SAT 91
[2024-09-09 01:00] VITALS: BP 131/77; PULSE 95; RESP 20; TEMP 98.4; O2SAT 93
[2024-09-09 05:00] VITALS: BP 133/82; PULSE 111; RESP 19; TEMP 98.1; O2SAT 93
[2024-09-09 09:05] VITALS: BP 132/67; PULSE 96; RESP 18; TEMP 98; O2SAT 92
--- NOTE | 2024-09-09 11:25 | DVHPN2 ---
Progress Note Date Seen: Sep 09, 2024 Medical Necessity Reason Pt with a Central, PICC or Fol: No Objective vital signs Vital Sign Date Time Temp Pulse Resp B/P (MAP) Pulse Ox O2 Delivery O2 Flow Rate FiO2 09/09/24 09:05 98.0 96 18 132/67 (88) 92 98.0 09/08/24 20:00 Nasal Cannula* 2 28 Total Intake and Output 09/08/24 09/08/24 09/09/24 15:00 23:00 07:00 Intake Total 0 ml 0 ml 0 ml Output Total 150 ml 50 ml Balance -150 ml 0 ml -50 ml medications Current Medications Medications Dose Ordered Sig/Justin Route Start Time Stop Time Status Last Admin Dose Admin Oxycodone HCl 10 mg ONCE PRN PO 09/06/24 15:00 Lorazepam 0.5 mg Q6HP PRN PO 09/06/24 14:15 Docusate Sodium 100 mg BIDPRN PRN PO 09/06/24 14:15 Acetaminophen 650 mg Q6HP PRN PO 09/06/24 14:15 09/07/24 15:13 650 MG Temazepam 15 mg QHSP PRN PO 09/06/24 14:15 Acetaminophen/ Hydrocodone Bitart 1 tab Q4HP PRN PO 09/06/24 14:15 Potassium Chloride/Dextrose/ Sod Cl 1,000 ml @ 120 mls/hr Q8H20M IV 09/06/24 16:30 09/08/24 01:50 120 MLS/HR Cefazolin Sodium/ Dextrose 50 ml @ 50 mls/hr Q8H IV 09/06/24 21:00 09/09/24 05:00 50 MLS/HR Metronidazole 100 ml @ 100 mls/hr Q8HR IV 09/06/24 22:00 09/09/24 06:13 100 MLS/HR Hydromorphone HCl 1 mg Q3HP PRN IV 09/06/24 16:30 09/08/24 20:20 1 MG Ondansetron HCl 4 mg Q6HPRN PRN IV 09/06/24 16:30 laboratory and microbiology Laboratory Tests 09/07/24 06:32 Test 09/07/24 06:32 Range/Units Serum Glucose 133 H 74-106 mg/dL Problem List/Assessment/Plan Problem List/Assessment/Plan 09/09/24 FEELS MUCH BETYTER, HAVING NORMAL BOWEL ACTIVITY, IS VERY HUNGRY, ABDOMEN APPROPRIATELY TENDER, NON DISTENDED. WOUND CLEAN AND WELL APPROXIMATED Plan discussed with: Patient IRINA LUCAS MD Sep 09, 2024 11:24
[2024-09-09 13:00] VITALS: BP 161/94; PULSE 88; RESP 20; TEMP 97.6; O2SAT 92
--- NOTE | 2024-09-09 14:46 | DVHPN2 ---
Subjective Doing well No pain He is ambulating Changes from previous H/P or p: Changes Eyes: No Pain, No Vision change, No Conjunctivae inflammation, No Eyelid inflammation, No Other, No Redness ENT: No Ear pain, No Ear discharge, No Nose pain, No Nose discharge, No Nose congestion, No Mouth pain, No Mouth swelling, No Throat pain, No Throat swelling, No Other Cardiovascular: No Chest Pain, No Palpitations, No Orthopnea, No Paroxysmal Noc. Dyspnea, No Edema, No Lt Headedness, No Other Respiratory: No Cough, No Dry, No Shortness of breath, No SOB with excertion, No Wheezing, No Hemoptysis, No Pleuritic Pain, No Sputum, No Other Gastrointestinal: Nausea, Vomiting, Abdominal Pain; No Diarrhea, No Constipation, No Melena, No Hematochezia, No Other Genitourinary: No Dysuria, No Frequency, No Incontinence, No Hematuria, No Retention, No Other Musculoskeletal: No other, No neck pain, No shoulder pain, No arm pain, No back pain, No hand pain, No leg pain, No foot pain Skin: No Rash, No Lesions, No Jaundice, No Bruising, No Other Objective Vitals Vital Signs Date Time Temp Pulse Resp B/P (MAP) Pulse Ox O2 Delivery O2 Flow Rate FiO2 09/09/24 13:00 97.6 88 20 161/94 (116) 92 97.6 09/08/24 20:00 Nasal Cannula* 2 28 Intake/Output Intake and Output 09/09/24 07:00 Intake Total 0 ml Output Total 200 ml Balance -200 ml Intake Oral 0 ml Drainage Total 200 ml # Voids 5 # Bowel Movements 3 General Appearance: Alert, Oriented X3, Cooperative, No acute distress Lungs: Clear to auscultation, Normal air movement Cardiovascular: Regular rate, Normal S1, Normal S2, No murmurs Abdomen: Normal bowel sounds, Soft, No tenderness Extremities: No edema Medications Current Medications Medications Dose Ordered Sig/Justin Route Start Time Stop Time Status Last Admin Dose Admin Oxycodone HCl 10 mg ONCE PRN PO 09/06/24 15:00 Lorazepam 0.5 mg Q6HP PRN PO 09/06/24 14:15 Docusate Sodium 100 mg BIDPRN PRN PO 09/06/24 14:15 Acetaminophen 650 mg Q6HP PRN PO 09/06/24 14:15 09/07/24 15:13 650 MG Temazepam 15 mg QHSP PRN PO 09/06/24 14:15 Acetaminophen/ Hydrocodone Bitart 1 tab Q4HP PRN PO 09/06/24 14:15 Potassium Chloride/Dextrose/ Sod Cl 1,000 ml @ 120 mls/hr Q8H20M IV 09/06/24 16:30 09/08/24 01:50 120 MLS/HR Cefazolin Sodium/ Dextrose 50 ml @ 50 mls/hr Q8H IV 09/06/24 21:00 09/09/24 13:58 50 MLS/HR Metronidazole 100 ml @ 100 mls/hr Q8HR IV 09/06/24 22:00 09/09/24 06:13 100 MLS/HR Hydromorphone HCl 1 mg Q3HP PRN IV 09/06/24 16:30 09/08/24 20:20 1 MG Ondansetron HCl 4 mg Q6HPRN PRN IV 09/06/24 16:30 Laboratory Results Laboratory Tests 09/07/24 06:32 Urinalysis Test 09/06/24 11:00 Urine Color Yellow (Yellow) Urine Clarity Clear (Clear) Urine pH 6.0 (5.0-9.0) Urine Specific [place] 1.030 (1.001-1.035) Urine Protein 1+ (Negative) H Urine Ketones Negative (Negative) Urine Blood Negative /uL (Negative) Urine Nitrite Negative (Negative) Urine Bilirubin Negative (Negative) Urine Urobilinogen Normal mg/dL (Negative) Urine Leukocyte Esterase Negative /uL (Negative) Urine RBC 2 /hpf (0 - 3) Urine WBC 3 /hpf (0 - 3) Urine Squamous Epithelial Cells None seen /hpf (<5) Urine Bacteria None seen /hpf (None Seen) Urine Hyaline Casts Few /lpf (0 - 2) Urine Mucus Moderate (None Seen) Urine Glucose Normal mg/dL (Normal) Microbiology Microbiology Date/Time Source Procedure Growth Status 09/06/24 14:30 Peritoneal Fluid Gram Stain - Final Resulted 09/06/24 14:30 Peritoneal Fluid Anaerobic Culture - Preliminary Resulted 09/06/24 14:30 Aerobic Culture - Preliminary Klebsiella pneumoniae#2 Klebsiella pneumoniae Resulted Assessment/Plan Assessment/Plan Ruptured acute appendicitis Leukocytosis Sepsis due to acute appendicitis Hyponatremia Plan Start clear liquid diet Continue IV antibiotics cefazolin and Flagyl Continue IV fluids Pain management as needed Ambulate Full code Monitor closely Advance directives discussed for 20 minutes Plan discussed with: Patient My Orders Orders - LETTY JURADO MD Procedure Category Date Status Time Clear Liq Diet DIET 09/09/24 Transmitted Lunch Date of Service: Sep 09, 2024 Billing Provider: LETTY JURADO MD Common Visit Codes: [id number] INP/OBS CARE(HIGH) Secondary Visit Codes: [id number] CARE PLAN 30 MINUTES LETTY JURADO MD Sep 09, 2024 14:46
[2024-09-09] MEDS: D5W/SOD CHL 0.45% 1,000 ML IV SCH (15:00)
[2024-09-09 17:02] VITALS: BP 152/90; PULSE 97; RESP 20; TEMP 98.6; O2SAT 94
[2024-09-09 21:00] VITALS: BP 119/73; PULSE 99; RESP 18; TEMP 98.8; O2SAT 95
[2024-09-10 01:00] VITALS: BP 128/81; PULSE 94; RESP 18; TEMP 99.2; O2SAT 95
[2024-09-10 05:00] VITALS: BP 129/81; PULSE 79; RESP 18; TEMP 98.5; O2SAT 96
[2024-09-10 06:23] LABS: Basophils # (auto) 0.1 10 ^3/uL (0-0.2); Basophils % (auto) 0.7 % (0.0-2.0); Eosinophils # (auto) 0.3 10 ^3/uL (0-0.8); Eosinophils % (auto) 2.7 % (0.0-7.0); Hemoglobin 15.8 g/dL (13.5-17.5); Lymphocytes # (auto) 1.6 10 ^3/uL (0.4-5.4); Lymphocytes % (auto) 13.4 % (10.0-50.0); Mean Corpuscular Hemoglobin 32.8 pg (28.0-32.0); Mean Corpuscular Volume 93.7 fL (80.0-100.0); Monocytes % (auto) 8.7 % (0.0-12.0); Neutrophils # (auto) 8.7 10 ^3/uL (1.6-8.6); Neutrophils % (auto) 74.5 % (37.0-80.0); Nucleated Red Blood Cells % 0.1 %; Platelet Count (auto) 383 10^3/uL (140-450); Red Cell Distribution Width 13.2 % (11.8-14.3); White Blood Cell 11.7 10^3/uL (4.4-10.8)
[2024-09-10 06:45] LABS: Alanine Aminotransferase 10 U/L (7-40); Albumin 3.8 g/dL (3.2-4.8); Alkaline Phosphatase 75 U/L (46-116); Anion Gap 10 (5-15); Aspartate Aminotransferase 19 U/L (13-40); BUN/Creatinine Ratio 16.9 (10.0-20.0); Blood Urea Nitrogen 13 mg/dL (9-23); Carbon Dioxide 22 mmol/L (20-31); Chloride 104 mmol/L (98-107); Glucose 105 mg/dL (74-106); Magnesium 2.1 mg/dL (1.6-2.6); Potassium 3.7 mmol/L (3.5-5.1)
[2024-09-10 06:46] LABS: Bilirubin, Total 0.7 mg/dL (0.2-1.0); Total Protein 6.7 g/dL (5.7-8.2)
[2024-09-10 07:11] LABS: Sodium 136 mmol/L (136-145)
[2024-09-10 08:00] VITALS: PULSE 87; RESP 16; O2SAT 93
[2024-09-10 09:00] VITALS: BP 131/85; PULSE 87; RESP 16; TEMP 98.6; O2SAT 93
--- NOTE | 2024-09-10 10:51 | DVHPN2 ---
Progress Note Date Seen: Sep 10, 2024 Medical Necessity Reason Pt with a Central, PICC or Fol: No Objective vital signs Vital Sign Date Time Temp Pulse Resp B/P (MAP) Pulse Ox O2 Delivery O2 Flow Rate FiO2 09/10/24 09:00 98.6 87 16 131/85 (100) 93 98.6 09/10/24 08:00 Room Air* 0 21 Total Intake and Output 09/09/24 09/09/24 09/10/24 15:00 23:00 07:00 Intake Total 0 ml 1000 ml 650 ml Balance 0 ml 1000 ml 650 ml medications Current Medications Medications Dose Ordered Sig/Justin Route Start Time Stop Time Status Last Admin Dose Admin Oxycodone HCl 10 mg ONCE PRN PO 09/06/24 15:00 Lorazepam 0.5 mg Q6HP PRN PO 09/06/24 14:15 Docusate Sodium 100 mg BIDPRN PRN PO 09/06/24 14:15 Acetaminophen 650 mg Q6HP PRN PO 09/06/24 14:15 09/07/24 15:13 650 MG Temazepam 15 mg QHSP PRN PO 09/06/24 14:15 Acetaminophen/ Hydrocodone Bitart 1 tab Q4HP PRN PO 09/06/24 14:15 Cefazolin Sodium/ Dextrose 50 ml @ 50 mls/hr Q8H IV 09/06/24 21:00 09/10/24 06:00 50 MLS/HR Metronidazole 100 ml @ 100 mls/hr Q8HR IV 09/06/24 22:00 09/10/24 07:03 100 MLS/HR Hydromorphone HCl 1 mg Q3HP PRN IV 09/06/24 16:30 09/08/24 20:20 1 MG Ondansetron HCl 4 mg Q6HPRN PRN IV 09/06/24 16:30 Dextrose/Sodium Chloride 1,000 ml @ 75 mls/hr [id number] IV 09/09/24 15:00 09/09/24 15:00 75 MLS/HR laboratory and microbiology Laboratory Tests 09/10/24 05:37 Test 09/10/24 05:37 Range/Units Serum Glucose 105 74-106 mg/dL Problem List/Assessment/Plan Problem List/Assessment/Plan 09/09/24 FEELS MUCH BETYTER, HAVING NORMAL BOWEL ACTIVITY, IS VERY HUNGRY, ABDOMEN APPROPRIATELY TENDER, NON DISTENDED. WOUND CLEAN AND WELL APPROXIMATED 09/10/24 doing wwell, wants to go home, instructions given Plan discussed with: Patient, Son Dietary Evaluation Review Comments: 1) Advance pt diet when medically feasible 2) Continue current plan of care Expected Outcomes/Goals: 1) F/U in 2-3 days IRINA LUCAS MD Sep 10, 2024 10:51
[2024-09-10] MEDS ORDERED: HYDR-4902 PO (11:47)
[2024-09-10] MEDS ORDERED: AUG875T PO (11:47)
--- NOTE | 2024-09-10 11:53 | DVHDS2 ---
Discharge Summary Date of Admission Sep 06, 2024 at 13:50 Date of Discharge: Sep 10, 2024 Labs/Diagnostic Data: Laboratory Results Test 09/10/24 05:37 09/08/24 17:03 09/06/24 11:16 09/06/24 11:00 White Blood Count 11.7 10^3/uL (4.4-10.8) Red Blood Count 4.80 10^6/uL (4.5-5.90) Hemoglobin 15.8 g/dL (13.5-17.5) Hematocrit 45.0 % (41.0-53.0) Mean Corpuscular Volume 93.7 fL (80.0-100.0) Mean Corpuscular Hemoglobin 32.8 pg (28.0-32.0) Mean Corpuscular Hemoglobin Concent 35.0 g/dL (32.0-36.0) Red Cell Distribution Width 13.2 % (11.8-14.3) Platelet Count 383 10^3/uL (140-450) Mean Platelet Volume 7.6 fL (6.9-10.8) Neutrophils (%) (Auto) 74.5 % (37.0-80.0) Lymphocytes (%) (Auto) 13.4 % (10.0-50.0) Monocytes (%) (Auto) 8.7 % (0.0-12.0) Eosinophils (%) (Auto) 2.7 % (0.0-7.0) Basophils (%) (Auto) 0.7 % (0.0-2.0) Neutrophils # (Auto) 8.7 10 ^3/uL (1.6-8.6) Lymphocytes # (Auto) 1.6 10 ^3/uL (0.4-5.4) Monocytes # (Auto) 1.0 10 ^3/uL (0-1.3) Eosinophils # (Auto) 0.3 10 ^3/uL (0-0.8) Basophils # (Auto) 0.1 10 ^3/uL (0-0.2) Nucleated Red Blood Cells 0.1 % Sodium Level 136 mmol/L (136-145) Potassium Level 3.7 mmol/L (3.5-5.1) Chloride Level 104 mmol/L (98-107) Carbon Dioxide Level 22 mmol/L (20-31) Anion Gap 10 (5-15) Blood Urea Nitrogen 13 mg/dL (9-23) Creatinine 0.77 mg/dL (0.700-1.30) Glomerular Filtration Rate Calc 109 mL/min (>90) BUN/Creatinine Ratio 16.9 (10.0-20.0) Serum Glucose 105 mg/dL (74-106) Calcium Level 9.0 mg/dL (8.7-10.4) Magnesium Level 2.1 mg/dL (1.6-2.6) Total Bilirubin 0.7 mg/dL (0.2-1.0) Aspartate Amino Transferase (AST) 19 U/L (13-40) Alanine Aminotransferase (ALT) 10 U/L (7-40) Alkaline Phosphatase 75 U/L (46-116) Total Protein 6.7 g/dL (5.7-8.2) Albumin 3.8 g/dL (3.2-4.8) POC Glucose 155 mg/dl (70-106) Prothrombin Time 11.4 sec (9.3-11.8) Prothrombin Time INR 1.08 (0.9-1.15) Activated Partial Thromboplast Time 30.2 SEC (24.5-34.5) Urine Color Yellow (Yellow) Urine Clarity Clear (Clear) Urine pH 6.0 (5.0-9.0) Urine Specific [place] 1.030 (1.001-1.035) Urine Protein 1+ (Negative) Urine Ketones Negative (Negative) Urine Blood Negative /uL (Negative) Urine Nitrite Negative (Negative) Urine Bilirubin Negative (Negative) Urine Urobilinogen Normal mg/dL (Negative) Urine Leukocyte Esterase Negative /uL (Negative) Urine RBC 2 /hpf (0 - 3) Urine WBC 3 /hpf (0 - 3) Urine Squamous Epithelial Cells None seen /hpf (<5) Urine Bacteria None seen /hpf (None Seen) Urine Hyaline Casts Few /lpf (0 - 2) Urine Mucus Moderate (None Seen) Urine Glucose Normal mg/dL (Normal) Other Laboratory Tests 09/10/24 05:37 Brief Hx & Hospital Course: Final Diagnoses: Ruptured acute appendicitis Leukocytosis Sepsis due to acute appendicitis Hyponatremia 49-year-old male who was admitted for abdominal pain was found to have ruptured appendicitis He required surgery He did well overall and he started diet yesterday morning we give him clear liquids and then today he was feeling better he is ambulating well General surgery saw him again today and cleared him for discharge Advance diet slowly as tolerated He will be discharged home on Augmentin and [place] for pain p.r.n. Follow up with the surgeon in 10 days Condition at Discharge: Stable Final Diagnosis/Problems List Ruptured acute appendicitis Leukocytosis Sepsis due to acute appendicitis Hyponatremia Discharge Disposition: Home SNF Discharge Will this Physician continue t: No Discharge Instruct/Medications Diet: See Comment Diet comment: Advance as tolerated Activity: No Restrictions, As Tolerated Follow Up/Referral: Dr. Chamberlain in 10 Medications: Augmentin for 7 days [place] as needed Discharge Statement: "Patient was advised to return to the ER or call 911 if any headaches, dizziness, shortness of breath, chest pain, abdominal pain, bleeding, fevers, or worsening of medical condition. Patient was counseled about treatment plan, medications, possible side effects, patientverbalized understanding. All questions were answered to the best of my ability. This discharge took greater then 30 minutes in planning, reviewing documentation, counseling the patient, and discussing with other team members." ASSESSMENT ASSESSMENT Assessment With acute appendicitis Date of Service: Sep 10, 2024 Billing Provider: LETTY JURADO MD Common Visit Codes: 46042-ADP/OBS DISCH DAY >30min LETTY JURADO MD Sep 10, 2024 11:53
[2024-09-10 12:59] VITALS: BP 131/85; PULSE 87; RESP 16; TEMP 98.6; O2SAT 93
== END 2024-09-10 13:24 | disposition home or self-care (01) | DRG 853 ==
LOC: ER 10:44 → OVERFLOW 13:50 → ER 13:54 → WEST WING 18:25
PROVIDERS: ADMIT Hospitalist; ATTEND Internal Medicine Geriatric Medicine
PROC: 0DTJ4ZZ Resection of Appendix, Percutaneous Endoscopic Approach (ICD-10-PCS; principal; 2024-09-06 13:52)
DX: A41.9 Sepsis, unspecified organism (principal); K35.32 Acute appendicitis with perforation, localized peritonitis, and gangrene, without abscess; E87.1 Hypo-osmolality and hyponatremia; K56.7 Ileus, unspecified; F17.210 Nicotine dependence, cigarettes, uncomplicated; E66.01 Morbid (severe) obesity due to excess calories; Z83.3 Family history of diabetes mellitus; Z68.33 Body mass index [BMI] 33.0-33.9, adult
CPT/HCPCS: 36415; 71045; 74176; 80048; 80053; 81001; 82962; 83735; 85025; 85610; 85730; 86850; 86900; 86901; 87070; 87075; 87076; 87077; 87186; 87205; 96365; 96375; G0378; J0131; J1100; J1885; J2003; J2405; J2543; J2704; J3490